=== PATIENT | male | born 2000 | race Caucasian/White ===

== ENCOUNTER 2021-10-28 13:15 | Emergency (ER) | payer MEDICAID ==
[~2021-10-28] VITALS: Ht 175.3 cm; Wt 64.2 kg
[2021-10-28 14:00] LABS: HEMATOCRIT 45.2 % (36.0-47.0); HEMOGLOBIN 15.5 g/dL (12.5-16.1); MEAN CELL VOLUME 85 fl (78-95); MEAN CORPUSCULAR HEMOGLOBIN 29 pg (26-32); MEAN CORPUSCULAR HGB CONC 34 g/dL (33-37); MEAN PLATELET VOLUME 9.2 fl (7.4-10.4); PLATELET COUNT 243 K/mm3 (130-400); RED BLOOD COUNT 5.35 M/mm3 (4.20-5.60); RED CELL DISTRIBUTION WIDTH 12.1 % (11.5-14.5); WHITE BLOOD COUNT 9.7 K/mm3 (4.8-10.8)
[2021-10-28 14:14] LABS: POTASSIUM 3.9 mmol/L (3.5-5.1)
[2021-10-28 14:15] LABS: CALCIUM 9.3 mg/dL (8.3-10.5)
[2021-10-28 14:31] LABS: URINE APPEARANCE CLEAR; URINE BILIRUBIN NEGATIVE (NEGATIVE); URINE BLOOD TRACE (NEGATIVE); URINE COLOR YELLOW; URINE GLUCOSE NEGATIVE (NEGATIVE); URINE KETONE 1+ (NEGATIVE); URINE LEUKOCYTE ESTERASE TRACE (NEGATIVE); URINE NITRATE NEGATIVE (NEGATIVE); URINE PROTEIN(semi-quant) NEGATIVE (NEGATIVE); URINE UROBILINOGEN NORMAL (NORMAL)
[2021-10-28 14:35] LABS: BAND 1 % (0-10); LYMPHOCYTE 5 % (20-51); MONOCYTE 2 % (1-10); NEUTROPHILS 89 % (42-75)
[2021-10-28 19:15] LABS: HEMATOCRIT 44.4 % (36.0-47.0); HEMOGLOBIN 15.2 g/dL (12.5-16.1)
[2021-10-28] MEDS ORDERED: GOOD SENSE OMEP20 MG PO (19:36)
[2021-10-28 19:44] VITALS: BP 124/75
== END 2021-10-28 19:44 | disposition home or self-care (01) ==
LOC: ED 13:15
PROVIDERS: Family Medicine
DX: K21.9 Gastro-esophageal reflux disease without esophagitis (principal); K20.90 Esophagitis, unspecified without bleeding; R31.21 Asymptomatic microscopic hematuria; F17.210 Nicotine dependence, cigarettes, uncomplicated
CPT/HCPCS: J3490; J7030; Q9967